=== PATIENT | male | born 1935 | race Caucasian/White ===

== ENCOUNTER 2023-01-09 07:20 | Outpatient (CLI) | payer OTHER | END 2023-01-09 23:59 | disposition critical access hospital (66) | LOC: EMS 07:20 | DX: R06.02 Shortness of breath (principal); J44.9 Chronic obstructive pulmonary disease, unspecified | CPT/HCPCS: A0425; A0427 ==

== ENCOUNTER 2023-01-09 07:54 | Emergency (ER) | payer OTHER ==
[2023-01-09] MEDS ORDERED: LEVALBUTEROL 1.25 MG/3 ML NEB INH STA ×2 (07:56→09:35)
--- NOTE | 2023-01-09 07:59 | ED Physician Documentation ---
PD HPI DYSPNEA - Stated complaint Stated Complaint: SOA - History obtained from History obtained from: Patient, EMS - Additional information Additional information: 87-year-old gentleman with history of remote CABG (1998) and COPD. For the last 3 days or so he has been short of breath with a cough productive of yellow sputum. There is no associated chest pain or pedal edema. He has been taking nebulizers at home which help fleetingly. He has an appointment to see his analysis mgr, Dr. Pelletier in [place] at [place] tomorrow but did not feel like he could wait. On the way here he received a DuoNeb and 125 mg of IV Solu-Medrol with improvement but not complete relief. PD PAST MEDICAL HISTORY - Present Medications Home Medications: Ambulatory Orders Medication Instructions Recorded Confirmed Doxycycline [Vibramycin] 100 mg PO BID #14 tablet 01/09/23 Finasteride [Proscar] 5 mg PO DAILY 01/09/23 01/09/23 Ipratropium/Albuterol [Duoneb] 3 ml INH Q6H #30 appful 01/09/23 Metoprolol Tartrate [Lopressor] 12.5 mg PO BID 01/09/23 01/09/23 Warfarin [Coumadin] 5 mg PO DAILY 01/09/23 01/09/23 amLODIPine [Norvasc] 5 mg PO DAILY 01/09/23 01/09/23 hydrALAZINE [Apresoline] 25 mg PO QD 01/09/23 01/09/23 predniSONE [Deltasone] 20 mg PO [id number] #21 tab 01/09/23 - Allergies Allergies/Adverse Reactions: Allergies Allergy/AdvReac Type Severity Reaction Status Date / Time No Known Drug Allergies Allergy Verified 01/09/23 08:01 PD ED PE NORMAL - Vitals Vital signs reviewed: Yes - General General: Alert and oriented X 3, Other (Audibly wheezing and slightly hard of hearing) - Neck Neck: Supple, no meningeal sign, No bony TTP - Cardiac Cardiac: Other (Irregularly irregular without murmur) - Respiratory Respiratory: Other (Breathing comfortably but audibly wheezing with inspiratory and expiratory wheezes. No focal findings.) - Abdomen Abdomen: Non tender - Extremities Extremities: No edema, No calf tenderness / cord - Neuro Neuro: Alert and oriented X 3, Normal speech Results - Vitals Vitals: Vital Signs - 24 hr 01/09/23 01/09/23 01/09/23 08:01 08:30 09:05 Temperature 36.4 C L Heart Rate 88 87 84 Respiratory 28 H 22 18 Rate Blood Pressure 130/109 H 166/109 H O2 Saturation 96 96 01/09/23 10:02 Temperature Heart Rate 85 Respiratory 20 Rate Blood Pressure O2 Saturation Oxygen O2 Source Room air - EKG (time done) 0800 EKG releavant findings:: EKG personally interpreted by author of this note. Relevant findings are: Rate: Rate (enter#) (80) Rhythm: Atrial fibrillation (w pvcs) [place]: RAD QRS: Normal Ischemia: Non specific changes. No: ST elevation c/w ischemia, ST depression Compare to prior EKG: Old EKG unavailable Computer interpretation: Agree with computer - Labs Labs: Laboratory Tests 01/09/23 01/09/23 01/09/23 08:16 08:16 08:16 WBC 12.6 H RBC 5.52 Hgb 16.0 Hct 49.1 MCV 88.9 MCH 29.0 MCHC 32.6 RDW 14.2 Plt Count 177 MPV 10.7 Neut # (Auto) 8.0 H Lymph # (Auto) 2.3 [place] # (Auto) 1.2 H Eos # (Auto) 0.8 H Baso # (Auto) 0.2 H Absolute Nucleated RBC 0.00 Nucleated RBC % 0.0 VBG pH 7.353 VBG pCO2 46.2 VBG pO2 40.7 VBG HCO3 25.1 VBG Total CO2 26.5 VBG O2 Saturation 77.8 VBG Base Excess -0.9 Sodium 141 Potassium 3.8 Chloride 105 Carbon Dioxide 30 Anion Gap 6.0 BUN 10 Creatinine 0.8 Estimated GFR (MDRD) 91 Glucose 134 H Calcium 9.5 - Rads (name of study) 1v [id number] Relevant Findings:: Final report received, EMP independent interpretation of test PD Medical Decision Making - ED course ED course: 87-year-old gentleman with apparent COPD exacerbation. He is quite wheezy. After initial evaluation he received 2.5 mg (a double dose) of Xopenex via nebulizer. After which she was feeling somewhat better but still fairly wheezy. Oxygen saturations were good. He also received IV Decadron and oral doxycycline here. The Xopenex was repeated He was feeling much better after this and requested discharge. I recommended that he follow-up with his analysis mgr tomorrow as already scheduled but he says he is canceled the appointment in the interim since he was here. I advised him to recall them. Departure - Departure Disposition: Home, Self Care Clinical Impression: COPD exacerbation Condition: Good Record reviewed to determine appropriate education?: Yes Instructions: ED COPD Flare Prescriptions: predniSONE [Deltasone] 20 mg PO [id number] #21 tab Ipratropium/Albuterol [Duoneb] 3 ml INH Q6H #30 appful Doxycycline [Vibramycin] 100 mg PO BID #14 tablet Comments: Follow-up with Dr. Pelletier tomorrow as scheduled. Return for new or worsening symptoms. I sent your prescriptions electronically to [facility] in [place]. Often times when you start antibiotics while you are taking anticoagulants such as Coumadin or warfarin, your INR will go up. You need to have your INR checked frequently while on the antibiotics. Have it checked in 3 days, again in 6 days, and at least weekly while you are on antibiotics. Dose adjustments of your anticoagulants may be necessary.
[2023-01-09 08:25] LABS: VBG BASE EXCESS -0.9 mmol/L (-2 - +2); VBG HCO3 25.1 mmol/L (23-28); VBG PCO2 46.2 mmHg (41-51); VBG PH 7.353 (7.31-7.41); VBG PO2 40.7 mmHg (25-47); VBG TOTAL CO2 26.5 mmol/L (24-29)
[2023-01-09 08:27] LABS: VBG OXYGEN SATURATION 77.8 % (60-80)
[2023-01-09 08:33] LABS: CALCIUM 9.5 mg/dL (8.5-10.3); CREATININE 0.8 mg/dL (0.6-1.3); POTASSIUM 3.8 mmol/L (3.5-4.5)
[2023-01-09 08:48] LABS: BASOPHILS # (AUTO) 0.2 10^3/uL (0.0-0.1); BASOPHILS % (AUTO) 1.2 %; EOSINOPHILS # (AUTO) 0.8 10^3/uL (0.0-0.7); HCT - HEMATOCRIT 49.1 % (42.0-52.0); LYMPHOCYTES # (AUTO) 2.3 10^3/uL (1.5-3.5); LYMPHOCYTES % (AUTO) 18.3 %; MEAN CORPUSCULAR HGB CONC 32.6 g/dL (32.0-36.0); MEAN CORPUSCULAR VOLUME 88.9 fL (80.0-94.0); MEAN PLATELET VOLUME 10.7 fL (7.4-11.4); MONOCYTES # (AUTO) 1.2 10^3/uL (0.0-1.0); MONOCYTES % (AUTO) 9.8 %; NEUTROPHILS % (AUTO) 63.8 %; PLT - PLATELET COUNT 177 10^3/uL (130-450); RED BLOOD COUNT 5.52 10^6/uL (4.70-6.10); RED CELL DISTRIBUTION WIDTH 14.2 % (12.0-15.0); WHITE BLOOD COUNT 12.6 x10^3/uL (4.8-10.8)
[2023-01-09] MEDS ORDERED: DOXYCYCLINE 100 MG TABLET PO STA (08:49)
[2023-01-09] MEDS ORDERED: DEXAMETHASONE 10 MG/ML VIAL IVP STA (08:49)
[2023-01-09 09:08] VITALS: BP 166/109
--- NOTE | 2023-01-09 13:32 | XRAY Report ---
PROCEDURE: Chest 1 View X-Ray INDICATIONS: dyspnea cough TECHNIQUE: One view of the chest was acquired. COMPARISON: None. FINDINGS: Surgical changes and devices: Median sternotomy wires and surgical clips are noted. Lungs and pleura: No pleural effusions or pneumothorax. Lungs are clear. Mediastinum: Mediastinal contours appear normal. Heart size is enlarged. Bones and chest wall: No suspicious bony lesions. Overlying soft tissues appear unremarkable. IMPRESSION: No acute cardiopulmonary process. Reviewed by: Micheal Mora MD on 01/09/2023 8:43 AM PDT Approved by: Micheal Mora MD on 01/09/2023 8:43 AM PDT Station ID: [id number]
== END 2023-01-09 10:30 | disposition home or self-care (01) ==
LOC: ED 07:54
DX: J44.1 Chronic obstructive pulmonary disease with (acute) exacerbation (principal); Z95.1 Presence of aortocoronary bypass graft; Z79.01 Long term (current) use of anticoagulants
CPT/HCPCS: 36415; 71045; 80048; 82803; 85025; 93005; 94640; 94664; 96374; 99284; A9270